=== PATIENT | male | born 1965 | race African-American/Black ===

== ENCOUNTER 2023-12-18 17:44 | Emergency (ER) | payer OTHER ==
[2023-12-18] MEDS ORDERED: IBUPROFEN 400 MG TABLET (FP) PO ONE (18:20)
[2023-12-18] MEDS: IBUPROFEN 400 MG TABLET (FP) PO ONE (18:21)
[2023-12-18 18:24] VITALS: BP 159/92; PULSE 89; RESP 18; TEMP 97.8; BMI 23.6
== END 2023-12-18 19:15 | disposition home or self-care (01) ==
LOC: FER 17:44
DX: M25.572 Pain in left ankle and joints of left foot (principal); X50.1XXA Overexertion from prolonged static or awkward postures, initial encounter
CPT/HCPCS: 73610-TC-LT-FY; 73630-TC-LT; 99283-25